=== PATIENT | female | born 1970 | race Caucasian/White ===

== ENCOUNTER → 2017-11-30 | Outpatient (CLI) | payer OTHER ==
--- NOTE | 2017-11-30 16:01 | NUR ---
PATIENT STATES THAT SHE FELT THE "HOT FLUSH" OF THE CONTRAST AND THAT CORE CUTTER AND REAMER WAS PRESENT FOR INJECTION. CORE CUTTER AND REAMER WALKED FROM ROOM AT APPROPRIATE TIME FOR SCANNING AND PATIENT STATES THAT WHEN SHE MOVED INTO SCANNER IS WHEN HER ARM STARTED BURNING AT THE IV SITE. CORE CUTTER AND REAMER CALLED RN AND DR. MARSHALL TO ASSESS. PATIENT TAKEN TO HOLDING AREA IN CV LAB AREA FOR POST INJECTION MONITORING. COLD COMPRESS APPLIED PER PROTOCOL AND NO FURTHER SWELLING NOTED.
== END ==
LOC: M.CT 14:20
DX: R22.1 Localized swelling, mass and lump, neck (principal); Q18.0 Sinus, fistula and cyst of branchial cleft